=== PATIENT | female | born 1935 | race Caucasian/White ===

== ENCOUNTER 2024-09-08 20:14 | Emergency (ER) | payer MEDICARE ==
[~2024-09-08] VITALS: Ht 165.1 cm; Wt 72.0 kg
--- NOTE | 2024-09-08 20:28 | Physician Documentation ---
History of Present Illness ~ Chief Complaint: Wound Stated Complaint: WOUND ON L LEG Time Seen by MD: 21:47 OK to notify your PCP?: Yes Source: patient Mode of Arrival: POV Exam Limitations: no limitations HPI 88-year-old female presents with wound to medial aspect of left drummond which occurred 2 days ago. She says that she was in the shower and was washing her leg and her fingernail got caught on her leg and caused a small cut. Since , she has been having edema and weeping from around the wound. Medication Reconciliation Allergies: Coded Allergies: Tetanus Vaccines and Toxoid (Verified Allergy, Unknown, 09/08/24) Uncoded Allergies: SULFA (Allergy, Unknown, 09/08/24) "all the Sulfa abx's" cant tell me what kind of reaction she had. Review of Systems All Other Systems at this time: Reviewed and Negative Physical Exam Vital Signs: RN Vital Signs have been reviewed: Yes, Temperature: 97.9, Source: Temporal, Heart Rate: 80, Respiratory Rate: 16, BP: 139/49, Pulse Oximetry: 93, Weight: 72.000 Pulse Oximetry Reflects: adequate oxygenation Physical Exam General: Alert, no distress. HEENT: No injection, moist mucous membranes. Neck: Full range of motion. Respiratory: No respiratory distress, equal chest rise and fall. Chest: No accessory muscle use. Cardiovascular: Regular rate and rhythm. Gastrointestinal: Nondistended. Extremities: Normal range of motion, no deformity. Neurologic: Oriented x4. Psychiatric: Normal mood and affect. Skin: Small laceration to medial aspect of left drummond. Edema and clear weeping from the site. Bilateral lower extremity edema 1+ pitting. Procedures Laceration/Wound Repair Laceration/Wound Repair : Location: Left drummond Anesthesia: none Undermining: none Margins: flaps aligned Repaired: skin Wound Repaired With: Dermabond Layer Closure?: No Dressing Applied: simple, non-adherent Splint Applied?: No Sling Applied?: No Tolerated Procedure Well?: yes, no complications Progress Results/Orders Reviewed/noted all lab results: Yes Results/Orders Vital Signs 09/08/24 20:20 Temp 97.9 Pulse 80 Resp 16 B/P (MAP) 139/49 Pulse Ox 93 Medical Decision Making Findings 88-year-old female presents for drummond laceration after she cut herself while washing her leg with her fingernail. She rinsed it really well while she was in the shower. However she noticed she is draining clear fluid, from the site that is running down her leg like water. She has bilateral lower extremity edema which is normal for her and she is under the care of life management teacher but reports that she does not have failure in the cause of the edema is currently unknown. She is taking diuretics for this. On exam it is 1+ pitting. On exam the wound has no signs or symptoms of infection. It has had continuous drainage of her ed ematous fluid out of the wound, has not begun the healing process, I Dermabonded it shut. She has been educated to keep her legs elevated to help reduce the swelling and follow up with her primary care provider in the next 3 days. She is also given strict return instructions if there are any signs or symptoms of infection as she may need an antibiotic. Differential Dx:Considerations: Include: Abscess, Cellulitis, Healing wound Departure Disposition: 01 HOME / SELF CARE / HOMELESS Impression: Primary Impression: Laceration Condition: Stable Discharge Instructions: Laceration Care, Adult, [id number] Additional Instructions: The skin glue will fall off by itself, do not pick at it. Also do not use any ointments as this causes the glue to lift sooner. Monitor for any signs or symptoms of infection and be seen immediately if you start to have redness spreading up the leg, fevers, altered level of consciousness, increased pain at the site. Your primary care provider within the next 3 days for a wound recheck. Continue to keep your feet elevated to help reduce the edema in your legs. Referrals: NO PRIMARY CARE PROVIDER (PCP) Education Educated: Patient Educated regarding: diagnosis, treatment, prognosis, need for follow up Additional Comment Medical Screen Exam This patient recieved a medical screening examination. After reviewing the individual's medical complaints with presenting symptoms and performing an appropriate physical examination, it was determined that no immediate life- threatening emergency medical condition is present. This individual is also not a women having contractions. Signature Scribe Signature: . Attestation: Scribed for Lizett Schmitt by Lizett Tucker NP . 09/08/24 22:08 Parts of this note were created using [employer] voice recognition software program. While efforts were made to correct any mistakes made by this voice recognition software program, nonsensical phrases may remain in this note. In addition, there may be errors and syntax, grammar, content and spelling. LIZETT SCHMITT [facility] Sep 08, 2024 20:28
[2024-09-08 22:19] VITALS: BP 136/52; PULSE 78; RESP 18; TEMP 98.6; O2SAT 99
== END 2024-09-08 22:20 | disposition home or self-care (01) ==
LOC: ER 20:14
DX: S81.812A Laceration without foreign body, left lower leg, initial encounter (principal); Z88.7 Allergy status to serum and vaccine; X58.XXXA Exposure to other specified factors, initial encounter; Y93.89 Activity, other specified; Y92.89 Other specified places as the place of occurrence of the external cause; Y99.8 Other external cause status
CPT/HCPCS: 12001; 99282; Z7610